=== PATIENT | male | born 1990 | race Caucasian/White ===

== ENCOUNTER 2024-03-24 09:48 | Emergency (ER) | payer MEDICAID ==
[~2024-03-24] VITALS: Ht 177.8 cm; Wt 91.5 kg
[2024-03-24 10:12] VITALS: TEMP 97.8
[2024-03-24] MEDS: HYDROcodone/acetaminophen 7.5MG/325MG per 15ml UD CUP PO ONE (10:30)
[2024-03-24] MEDS ORDERED: DEXAMETHASONE 6 MG TABLET PO SCH (10:30)
[2024-03-24] MEDS: DEXAMETHASONE 6 MG TABLET PO ONE (10:37)
[2024-03-24] MEDS ORDERED: PRED20TA PO (10:37)
[2024-03-24] MEDS ORDERED: AMOX-580 PO (10:37)
[2024-03-24] MEDS: CefTRIAXone 1000mg IM Kit (w/lidocaine diluent) IM ONE (10:41)
[2024-03-24 10:43] VITALS: BP 137/88; PULSE 66; RESP 17; O2SAT 100
== END 2024-03-24 11:02 | disposition home or self-care (01) ==
LOC: ER 09:48
DX: J02.9 Acute pharyngitis, unspecified (principal); Z88.1 Allergy status to other antibiotic agents
CPT/HCPCS: 96372; 99283; J0696; J8540